=== PATIENT | male | born 1995 | race Caucasian/White ===

== ENCOUNTER 2019-09-07 04:28 | Emergency (ER) | payer SELFPAY ==
[~2019-09-07] VITALS: Ht 167.6 cm; Wt 47.2 kg
[2019-09-07 04:48] VITALS: BP 130/100
== END 2019-09-07 05:16 | disposition home or self-care (01) ==
LOC: ER 04:40
DX: T25.012A Burn of unspecified degree of left ankle, initial encounter (principal); T25.011A Burn of unspecified degree of right ankle, initial encounter; Z59.0 Homelessness; X08.8XXA Exposure to other specified smoke, fire and flames, initial encounter; Y93.89 Activity, other specified; Y92.89 Other specified places as the place of occurrence of the external cause; Y99.8 Other external cause status
CPT/HCPCS: 82962-TC